=== PATIENT | male | born 1965 | race Caucasian/White ===

== ENCOUNTER → 2018-04-07 | Emergency (ER) | payer SELFPAY ==
[~2018-04-07] MED LIST: ASPIRIN 81 MG TABLET, CHEWABLE PO ONE; HYDRALAZINE HCL INJ/PF 20 MG/1 ML SDV IV ONE; METOPROLOL TARTRATE PF/INJ 5 MG/5 ML SDV IV ONE
--- NOTE | 2018-04-07 15:46 | ER Document Report ---
ED Medical Screen (RME) - General Chief Complaint: Shoulder Pain Stated Complaint: LEFT SHOULDER PAIN Time Seen by Provider: 04/07/18 15:41 Mode of Arrival: Ambulatory Information source: Patient Notes: 53-year-old male presents emergency department with complaints of pain, numbness , tingling to the left upper extremity that is been intermittent in nature over the last couple months. Patient denies any alleviating or exacerbating factors. No trauma or injury. He denies any associated chest pain but states that he is having shortness of breath. Patient denies any medical problems. Patient states that he does not see a physician. He's not sure if he has any medical problems. He is not on any medications. Patient does smoke. Patient does have a significant family history of coronary artery disease. I have greeted and performed a rapid initial assessment of this patient. A comprehensive ED assessment and evaluation of the patient, analysis of test results and completion of the medical decision making process will be conducted by additional ED providers. PHYSICAL EXAMINATION: GENERAL: Well-appearing, well-nourished and in no acute distress. HEAD: Atraumatic, normocephalic. EYES: Pupils equal round extraocular movements intact, conjunctiva are normal. ENT: Nares patent NECK: Normal range of motion LUNGS: No respiratory distress Musculoskeletal: Normal range of motion. L trapezius tenderness to palpation. NEUROLOGICAL: Normal speech, normal gait. PSYCH: Normal mood, normal affect. SKIN: Warm, Dry, normal turgor, no rashes or lesions noted. TRAVEL OUTSIDE OF THE [place] IN LAST 30 DAYS: No - Related Data Allergies/Adverse Reactions: No Known Allergies Allergy (Unverified 04/07/18 15:25) Past Medical History - Social History Chew tobacco use (# tins/day): No Frequency of alcohol use: Occasional Drug Abuse: Marijuana Renal/ Medical History: Denies: Hx Peritoneal Dialysis Past Surgical History: Reports: Hx Appendectomy - Immunizations Hx Diphtheria, Pertussis, Tetanus Vaccination: No Physical Exam - Vital signs Vitals: Temp Pulse Resp BP Pulse Ox 98.5 F 114 H 20 180/125 H 96 04/07/18 15:29 04/07/18 15:29 04/07/18 15:29 04/07/18 15:29 04/07/18 15:29 Course - Vital Signs Vital signs: Temp Pulse Resp BP Pulse Ox 98.5 F 114 H 20 180/125 H 96 04/07/18 15:29 04/07/18 15:29 04/07/18 15:29 04/07/18 15:29 04/07/18 15:29
[2018-04-07 16:33] LABS: ABSOLUTE NEUT (AUTO) 5.5 10^3/uL (1.7-8.2); BASOPHILS % (AUTO) 0.6 % (0-2); EOSINOPHILS % (AUTO) 0.5 % (0-6); HEMOGLOBIN 18.9 g/dL (13.5-17.0); MEAN CORPUSCULAR HEMOGLOBIN 33.1 pg (27.0-33.4); MEAN CORPUSCULAR HGB CONC 34.9 g/dL (32.0-36.0); MEAN CORPUSCULAR VOLUME 95 fl (80-97); MONOCYTES % (AUTO) 11.9 % (3-13); PLATELET COUNT 314 10^3/uL (150-450); RED BLOOD COUNT 5.71 10^6/uL (4.35-5.55); RED CELL DISTRIBUTION WIDTH 12.7 % (11.5-14.0); TOTAL CELLS COUNTED % (AUTO) 100 %; WHITE BLOOD COUNT 8.6 10^3/uL (4.0-10.5)
--- NOTE | 2018-04-07 16:41 | RADIOLOGY REPORT (SQ) ---
EXAM DESCRIPTION: CHEST SINGLE VIEW COMPLETED DATE/TIME: 04/07/2018 4:33 pm REASON FOR STUDY: shortness of breath COMPARISON: None. EXAM PARAMETERS: NUMBER OF VIEWS: One view. TECHNIQUE: Single frontal radiographic view of the chest acquired. RADIATION DOSE: NA LIMITATIONS: None. FINDINGS: LUNGS AND PLEURA: Lung [place] are hyperexpanded but clear. No pneumothorax. No effusions . MEDIASTINUM AND HILAR STRUCTURES: No masses. Contour normal. HEART AND VASCULAR STRUCTURES: Heart normal in size. Normal vasculature. BONES: No acute findings. HARDWARE: None in the chest. OTHER: No other significant finding. IMPRESSION: NO ACUTE RADIOGRAPHIC FINDING IN THE CHEST. TECHNICAL DOCUMENTATION: JOB ID: [id number]- All Rights Reserved Reading location - IP/workstation name: [email or web address]
[2018-04-07 16:51] LABS: ALANINE AMINOTRANSFERASE 46 U/L (21-72); ALBUMIN 4.9 g/dL (3.5-5.0); ALKALINE PHOSPHATASE 105 U/L (38-126); ANION GAP 10 (5-19); ASPARTATE AMINO TRANSFERASE 41 U/L (17-59); BILIRUBIN,DIRECT 0.4 mg/dL (0.0-0.4); BILIRUBIN,TOTAL 0.9 mg/dL (0.2-1.3); BLOOD UREA NITROGEN 13 mg/dL (7-20); CALCIUM 10.3 mg/dL (8.4-10.2); CARBON DIOXIDE 26 mmol/L (22-30); CHLORIDE 102 mmol/L (98-107); CREATINE KINASE 80 U/L (55-170); GLUCOSE 106 mg/dL (75-110); POTASSIUM 5.4 mmol/L (3.6-5.0); SODIUM 137.8 mmol/L (137-145); TOTAL PROTEIN 8.7 g/dL (6.3-8.2)
[2018-04-07 17:06] LABS: TROPONIN I < 0.012 ng/mL
--- NOTE | 2018-04-07 18:33 | EKG REPORT ---
SEVERITY:- OTHERWISE NORMAL ECG - SINUS RHYTHM VENTRICULAR PREMATURE COMPLEX MINIMAL ST ELEVATION, ANTERIOR LEADS : Confirmed by: Brad Argueta MD 07-Apr-2018 18:31:45
--- NOTE | 2018-04-07 18:40 | ER Document Report ---
ED General - General Chief Complaint: Shoulder Pain Stated Complaint: LEFT SHOULDER PAIN Time Seen by Provider: 04/07/18 15:41 Mode of Arrival: Ambulatory Notes: 53-year-old male presents emergency department with complaints of pain, numbness , tingling to the left upper extremity that is been intermittent over the last couple months. Patient denies any alleviating or exacerbating factors. No trauma or injury. He denies any associated chest pain but states that he is having shortness of breath. Patient denies any medical problems. Patient states that he does not see a physician. He's not sure if he has any medical problems. He is not on any medications. Patient does smoke. Patient does have a significant family history of coronary artery disease. TRAVEL OUTSIDE OF THE [place] IN LAST 30 DAYS: No - Related Data Allergies/Adverse Reactions: No Known Allergies Allergy (Unverified 04/07/18 15:25) Past Medical History - General Information source: Patient - Social History Smoking Status: Current Every Day Smoker Chew tobacco use (# tins/day): No Frequency of alcohol use: Occasional Drug Abuse: Marijuana Family History: Reviewed & Not Pertinent Patient has suicidal ideation: No Patient has homicidal ideation: No Renal/ Medical History: Denies: Hx Peritoneal Dialysis Past Surgical History: Reports: Hx Appendectomy - Immunizations Hx Diphtheria, Pertussis, Tetanus Vaccination: No Review of Systems - Review of Systems Cardiovascular: denies: Chest pain Respiratory: Short of breath Musculoskeletal: Joint pain -: Yes All other systems reviewed and negative Physical Exam - Vital signs Vitals: Temp Pulse Resp BP Pulse Ox 98.5 F 114 H 20 180/125 H 96 04/07/18 15:29 04/07/18 15:29 04/07/18 15:29 04/07/18 15:29 04/07/18 15:29 - Notes Notes: GENERAL_APPEARANCE: well_nourished, alert, cooperative, no_acute_distress, no_ obvious_discomfort. VITALS: reviewed, see vital signs table. HEAD: no_swelling\tenderness on the head. EYES: PERRL, EOMI, conjunctiva_clear. NOSE: no_nasal_discharge. MOUTH: (-)decreased moisture. THROAT: no_throat_inflammation, no_airway_obstruction. no_lymphadenopathy NECK: supple, no_neck_tenderness, (-)thyromegaly. BACK: no_back_tenderness. CHEST_WALL: no_chest_tenderness. LUNGS: no_wheezing, no_rales, no_rhonchi, (-)accessory muscle use, good air exchange bilateral. HEART: normal_rate, normal_rhythm, normal_S1, normal_S2, (-)S3, (-)S4, no_ murmur, no_rub. ABDOMEN: normal_BS, soft, no_abd_tenderness, (-)guarding, (-)rebound, no_ organomegaly, no_abd_masses. EXTREMITIES: Patient has some tenderness in the posterior glenohumeral area. He does have pain upon lifting the arm above the head. There is some mild crepitus felt with it but that is also present on the contralateral arm. He states he is only had popping and grinding in his shoulders. There is strong radial and ulnar pulses noted on the left. No swelling is noted. SKIN: warm, dry, good_color, no_rash. MENTAL_STATUS: speech_clear, oriented_X_3, normal_affect, responds_ appropriately to questions. NEURO: Neg Motor or Sensory Deficits on exam, CN 2-12 intact, DTR 2+ symmetric x 4, No cerbellar signs Course - Re-evaluation Re-evalutation: 04/07/18 18:38 Patient presents with some left shoulder pain. This seems to be very musculoskeletal and reproducible. He has some sort of internal derangement of the shoulder the patient did mention a shortness of breath history. However at rest he has no shortness of breath he had some mild very scant wheezing noted he is a heavy smoker. Patient's blood pressure is elevated. I think I will start him on some HCTZ for this. His EKG does show some LVH. He is not complaining of any chest pain. This would go along with untreated hypertension the patient does not go to doctors normally. Recommend referral to orthopedics for his shoulders. Strongly recommended primary care follow-up for the blood pressure. My suspicion is low that this is an anginal equivalent. There is a family history of heart disease. However the reproducibility of discomfort on the arm is present. I spoke with him at length about this and the limitations of our testing. They are comfortable with this and okay going home if he develops any chest pain or worsening discomfort that cannot be reproduced or anything that concerns him he should return to the ER. - Vital Signs Vital signs: Temp Pulse Resp BP Pulse Ox 98.5 F 114 H 18 180/125 H 98 04/07/18 15:29 04/07/18 15:29 04/07/18 16:36 04/07/18 15:29 04/07/18 16:36 - Laboratory Result Diagrams: 04/07/18 16:10 04/07/18 16:10 Laboratory results interpreted by me: 04/07/18 04/07/18 16:10 16:10 RBC 5.71 H Hgb 18.9 H Hct 54.0 H Potassium 5.4 H Calcium 10.3 H Total Protein 8.7 H - Diagnostic Test Radiology results interpreted by me: 04/07/18 18:38 Chest X-Ray 04/07/18 15:45 IMPRESSION: NO ACUTE RADIOGRAPHIC FINDING IN THE CHEST. - EKG Interpretation by Me EKG shows normal: Sinus rhythm Rate: Normal Rhythm: NSR Additional EKG results interpreted by me: 04/07/18 18:38 There is LVH at a rate of 94 --the computer mention anterior changes this is due to LVH. Discharge - Discharge Clinical Impression: Internal derangement of left shoulder Hypertension Qualifiers: Hypertension type: unspecified Qualified Code(s): I10 - Essential (primary) hypertension Condition: Good Disposition: HOME, SELF-CARE Instructions: High Blood Pressure ([facility]), Shoulder Injury ([facility]) Additional Instructions: Your shoulder pain is likely due to internal derangement of the cartilage and ligaments in her shoulder. I will refer you to Dr. Bush orthopedics. He will likely need to do an MRI or arthroscope to look into this further. While you are here your blood pressure is running abnormally high. We will start you on a blood pressure medicine. Low dose. Please establish family practice primary care to return. Your blood pressure we need to be followed up closely. Not all tests are 100% if you began feeling worse or having chest pain breaking out to sweats or unexplained nausea and return to the ER immediately. Prescriptions: Hydrochlorothiazide 25 mg PO DAILY #30 tablet Naproxen [Naprosyn] 500 mg PO Q12H PRN #30 tablet PRN Reason: pain Forms: Elevated Blood Pressure
--- NOTE | 2018-04-07 20:21 | ER Document Report ---
ED General - General Chief Complaint: Shoulder Pain Stated Complaint: LEFT SHOULDER PAIN Time Seen by Provider: 04/07/18 15:41 Mode of Arrival: Ambulatory Information source: Patient Notes: Patient presented with left upper extremity pain. Patient is a smoker and has never had a stress test. Denies history of high blood pressure. Patient was initially seen by Dr. Vega and was discharged home. However did not was called me because his blood pressure is too high. I went and accessed the patient and patient said is not feeling fine and his blood pressure is elevated. TRAVEL OUTSIDE OF THE [place] IN LAST 30 DAYS: No - HPI Onset: Just prior to arrival Onset/Duration: Sudden Quality of pain: Achy, Dull Severity: Moderate Pain Level: 3 Associated symptoms: None Exacerbated by: Denies Relieved by: Denies Similar symptoms previously: No Recently seen / treated by doctor: No - Related Data Allergies/Adverse Reactions: No Known Allergies Allergy (Unverified 04/07/18 15:25) Past Medical History - General Information source: Patient - Social History Smoking Status: Current Every Day Smoker Chew tobacco use (# tins/day): No Frequency of alcohol use: Occasional Drug Abuse: Marijuana Family History: Reviewed & Not Pertinent Patient has suicidal ideation: No Patient has homicidal ideation: No Renal/ Medical History: Denies: Hx Peritoneal Dialysis Past Surgical History: Reports: Hx Appendectomy - Immunizations Hx Diphtheria, Pertussis, Tetanus Vaccination: No Review of Systems - Review of Systems Constitutional: No symptoms reported EENT: No symptoms reported Cardiovascular: No symptoms reported Respiratory: No symptoms reported Gastrointestinal: No symptoms reported Genitourinary: No symptoms reported Male Genitourinary: No symptoms reported Musculoskeletal: Other - Left upper extremity pain Skin: No symptoms reported Hematologic/Lymphatic: No symptoms reported Neurological/Psychological: No symptoms reported Physical Exam - Vital signs Vitals: Temp Pulse Resp BP Pulse Ox 98.5 F 114 H 20 180/125 H 96 04/07/18 15:29 04/07/18 15:29 04/07/18 15:29 04/07/18 15:29 04/07/18 15:29 Interpretation: Normal - General General appearance: Appears well, Alert - HEENT Head: Normocephalic, Atraumatic Eyes: Normal Pupils: PERRL - Respiratory Respiratory status: No respiratory distress Chest status: Nontender Breath sounds: Normal Chest palpation: Normal - Cardiovascular Rhythm: Regular Heart sounds: Normal auscultation Murmur: No - Abdominal Inspection: Normal Distension: No distension Bowel sounds: Normal Tenderness: Nontender Organomegaly: No organomegaly - Back Back: Normal, Nontender - Extremities General upper extremity: Normal inspection, Nontender, Normal color, Normal ROM , Normal temperature General lower extremity: Normal inspection, Nontender, Normal color, Normal ROM , Normal temperature, Normal weight bearing. No: Alisson's sign - Neurological Neuro grossly intact: Yes Cognition: Normal Orientation: AAOx4 [place] Coma Scale Eye Opening: Spontaneous Edy Coma Scale Verbal: Oriented [place] Coma Scale Motor: Obeys Commands [place] Coma Scale Total: 15 Speech: Normal Motor strength normal: LUE, RUE, LLE, RLE Sensory: Normal - Psychological Associated symptoms: Normal affect, Normal mood - Skin Skin Temperature: Warm Skin Moisture: Dry Skin Color: Normal Course - Vital Signs Vital signs: Temp Pulse Resp BP Pulse Ox 98.5 F 79 14 182/120 H 99 04/07/18 15:29 04/07/18 19:35 04/07/18 20:31 04/07/18 20:31 04/07/18 20:31 - Laboratory Result Diagrams: 04/07/18 16:10 04/07/18 16:10 Laboratory results interpreted by me: 04/07/18 04/07/18 16:10 16:10 RBC 5.71 H Hgb 18.9 H Hct 54.0 H Potassium 5.4 H Calcium 10.3 H Total Protein 8.7 H - Diagnostic Test Radiology reviewed: Image reviewed, Reports reviewed - EKG Interpretation by Ct EKG shows normal: Sinus rhythm Rate: Normal - 94 Rhythm: NSR When compared to previous EKG there are: Previous EKG unavailable Additional EKG results interpreted by me: 04/07/18 20:20 ST elevation in the anterior leads without reciprocal changes in the lateral leads. - Transfer of Care Notes: 04/07/18 20:21 Hypertensive emergency. Discharge - Discharge Clinical Impression: Internal derangement of left shoulder, Hypertensive emergency Hypertension Qualifiers: Hypertension type: unspecified Qualified Code(s): I10 - Essential (primary) hypertension Condition: Good Disposition: ADMITTED OBSERVATION Admitting Provider: Hospitalist Unit Admitted: Telemetry
[2018-04-07 21:27] VITALS: BP 177/122
== END | disposition admitted as inpatient to this hospital (09) ==
LOC: ER 15:20 → EH 20:44 → UNDOADMIN 20:44 → UNDODISIN 21:23
DX: M24.812 Other specific joint derangements of left shoulder, not elsewhere classified (principal); I10 Essential (primary) hypertension; M25.512 Pain in left shoulder; R06.02 Shortness of breath; R20.2 Paresthesia of skin; F17.200 Nicotine dependence, unspecified, uncomplicated
CPT/HCPCS: 93005; 99285; 96374; 36415; 82553; 82550; 85025; 80053; 84484; 71045; 93010; J3490

== ENCOUNTER 2019-04-14 10:11 | Emergency (ER) | payer OTHER ==
[2019-04-14] MEDS ORDERED: OXYCODONE-ACETAMINOPHEN 5-325 MG TABLET PO ONE (10:53)
[2019-04-14] MEDS ORDERED: PROMETHAZINE HCL 25 MG TABLET PO ONE (10:54)
--- NOTE | 2019-04-14 11:45 | RADIOLOGY REPORT (SQ) ---
EXAM DESCRIPTION: HAND LEFT 3 VIEWS COMPLETED DATE/TIME: 04/14/2019 11:31 am REASON FOR STUDY: Fell and injured lef hand. COMPARISON: None. EXAM PARAMETERS: NUMBER OF VIEWS: Three views. TECHNIQUE: AP, lateral and oblique radiographic images acquired of the left hand. LIMITATIONS: None. FINDINGS: MINERALIZATION: Normal. BONES: Cannot exclude a fracture of the trapezium versus trapezium secondarium, an accessory ossicle appear JOINTS: No effusions. SOFT TISSUES: No soft tissue swelling. No foreign body. OTHER: No other significant finding. IMPRESSION: Fracture of the trapezium versus an accessory ossicle. Correlate clinically. TECHNICAL DOCUMENTATION: JOB ID: [id number]- All Rights Reserved Reading location - IP/workstation name: [email or web address]
[2019-04-14] MEDS ORDERED: CLONIDINE HCL 0.1 MG TABLET PO ONE (12:00)
--- NOTE | 2019-04-14 12:11 | ER Document Report ---
ED Fall - General Chief Complaint: Fall Injury Stated Complaint: LEG INJURY Time Seen by Provider: 04/14/19 10:51 Primary Care Provider: AMANDA JERONIMO MD [ACTIVE PROVISIONAL STAFF] - Follow up in 3-5 days Notes: Patient fell down from a 10 foot ladder earlier this morning. He complains primarily of an injury to the left hand and wrist region, although he has abrasions on both shins. Denies any head injury or loss of consciousness. Denies any neurologic deficits. Denies any neck pain. TRAVEL OUTSIDE OF THE [place] IN LAST 30 DAYS: No - Related data Allergies/Adverse Reactions: No Known Allergies Allergy (Unverified 04/07/18 15:25) Past Medical History - Social History Smoking Status: Current Every Day Smoker Frequency of alcohol use: Social Drug Abuse: None, Marijuana Family History: Reviewed & Not Pertinent Patient has suicidal ideation: No Patient has homicidal ideation: No - Past Medical History Cardiac Medical History: Reports: Hx Hypertension - Supposed to be on medications, but does not take any. Past Surgical History: Reports: Hx Appendectomy - Immunizations Hx Diphtheria, Pertussis, Tetanus Vaccination: No Review of Systems - Review of Systems Notes: CONSTITUTIONAL : Denies fever. CARDIOVASCULAR: Denies chest pain. RESPIRATORY: Denies cough, chest congestion, or shortness of breath. GASTROINTESTINAL: Denies abdominal pain or nausea, vomiting, or diarrhea. GENITOURINARY: Denies difficulty or painful urinating, urinary frequency, blood in urine. Extremities: Abrasions to both lower leg shins. Swelling and pain in the left hand, dorsal webspace. Physical Exam - Vital signs Vitals: Temp Resp BP Pulse Ox 98.4 F 20 201/136 H 96 04/14/19 10:19 04/14/19 10:19 04/14/19 10:19 04/14/19 10:19 Interpretation: Hypertensive Notes: PHYSICAL EXAMINATION: Blood pressure significantly elevated with a diastolic of 136 initially. GENERAL: Well-appearing, no acute distress. HEAD: Atraumatic, normocephalic. NECK: Normal range of motion, supple. Nontender with full range of motion. LUNGS: Breath sounds clear and equal bilaterally. No rib tenderness. HEART: Regular rate and rhythm without murmurs heard. ABDOMEN: Soft, nontender. No guarding or rebound or masses felt. Extremities: Soft tissue swelling of the dorsal webspace of the left hand which is very tender to touch or move. Superficial abrasions extending on the volar aspect of the distal left forearm. Good pulses in the fingertips. Linear superficial abrasions down the anterior ridge of the tibia bilaterally. None of these are deep enough to require sutures. Neuro: Normal neurologic exam, moves all 4 extremities, awake, alert, oriented x3. Course - Re-evaluation Re-evalutation: 04/14/19 20:[address] Jeronimo, on-call for orthopedics, and he will make arrangements to see the patient. Blood pressure came down to an acceptable level in the 140-150 systolic over 106 diastolic. - Vital Signs Vital signs: Temp Pulse Resp BP Pulse Ox 98.1 F 19 143/108 H 97 04/14/19 15:12 04/14/19 15:12 04/14/19 15:12 04/14/19 15:12 Procedures - Immobilization Left Hand Pre-Proc Neuro Vasc Exam: Normal Immobilizer type: Volar splint Performed by: PCT Post-Proc Neuro Vasc Exam: Normal, Unchanged from pre-exam Discharge - Discharge Clinical Impression: Fracture of trapezium of left wrist, Hypertension Condition: Stable Disposition: HOME, SELF-CARE Additional Instructions: Fracture You have a fracture. The typical broken bone requires only protection and sufficient time for healing. "Setting" is necessary only if the bones are crooked or out of position. The physician will re-assess you periodically to make certain that the bone heals without complications. It's important that you follow the instructions given you. The initial treatment is immobilization, elevation of the injury, and cold packs. Not all fractures require a cast. Depending on the location and type of fracture, immobilization may consist of a splint, cast, sling, bulky dressing, or simply rest. The length of time required for healing depends on the location and type of fracture, and on the age of the patient. The treatment plan the physician has outlined for you is customized to your fracture and health condition. Call the doctor or return at once if pain becomes severe, or if severe swelling or numbness develop. You have a fracture of your trapezium and 1 of the metacarpals of your left hand. SPLINT PRECAUTIONS: A splint has been placed. This will protect the area while healing begins. Your problem does NOT normally require a cast. It MUST, however, be held still! Keep the splint on ALL THE TIME until instructed to remove it by the doctor. As you begin to use the area, be careful. You shouldn't do anything which causes discomfort -- you may disturb the injury even with the splint in place. After the initial period of rest and elevation, if splint does not prevent pain when you move, come back. You may require placement of a different splint, or a cast. If there is unexpected severe pain, or numbness, discoloration, or swelling beyond the splint, you should return at once. If you feel that the splint has broken or become loose, come back. ICE & ELEVATION: Apply ice packs frequently against the painful area. Many different schedules are recommended, such as "20 minutes on, 20 minutes off" or "one hour ice, two hours rest." If you need to work, you may need to go longer between ice treatments. You should plan to have the area ice packed AT LEAST one-fourth of the time. The ice should be applied over the wrap, tape, or splint, or over a layer of cloth -- not directly against the skin. Some ice bags have a built-in cloth and can be put directly on the skin. Your injured part should be elevated as much as possible over the next 48 hours. Try to keep the injury above the level of the heart. Avoid use of the injured area. Elevation and rest will decrease the swelling. Oral Narcotic Medication You have been given a prescription for pain control. This medication is a narcotic. It's best taken with food, as nausea can result if taken on an empty stomach. Don't operate machinery or drive within six hours of taking this medication. Do not combine this medicine with alcohol, or with any medication which can cause sedation (such as cold tablets or sleeping pills) unless you get permission from the physician. Narcotics tend to cause constipation. If possible, drink plenty of fluids and eat a diet high in fiber and fruits. Antinausea Medication You have been given a medication to suppress nausea and vomiting. This type of medication can be given as a shot, pill, or suppository. It will usually last for many hours. Pills and shots usually last six to eight hours, suppositories last about 12 hours. For the typical illness, only one or two doses of the medication may be necessary. Mild lightheadedness may occur. This type of medicine can cause drowsiness. Do not drive or operate dangerous machinery while under its influence. Do not mix with alcohol. See your doctor at once if you have muscle spasms or tightness, or uncontrollable motions (particularly of the neck, mouth, or jaw). Persistent vomiting or severe lightheadedness should also be evaluated by the physician. FOLLOW-UP CARE: If you have been referred to a physician for follow-up care, call the physicians office for an appointment as you were instructed or within the next two days. If you experience worsening or a significant change in your symptoms, notify the physician immediately or return to the Emergency Department at any time for re-evaluation. I have spoken with Dr. Jeronimo and he will follow-up with you about the fractures in your hand. His contact information is provided at the end of these discharge instructions. HIGH BLOOD PRESSURE REQUIRING TREATMENT: Your blood pressure is high. This is called "hypertension." Today's reading was (normal is less than 140/90). Your history and exam suggest that this is not a temporary problem. You need treatment of your blood pressure. If left untreated, high blood pressure greatly increases your risk of heart attack and stroke. Please don't ignore this problem. If you have blood pressure medicine but aren't using it regularly, start taking it again. Some simple things you can do to help are: Get some aerobic exercise for at least 20 minutes on a daily basis. (See your doctor before beginning any new exercise program.) Eat a low-fat diet. Lose excess weight. Avoid salty foods and avoid adding salt to any of the foods you eat. Avoid diet pills, decongestants, "energizing" herbs, and other medicines that elevate blood pressure. There are many different medicines that treat blood pressure. If your medication causes unpleasant side effects, call your doctor. There are others you can try. Treating hypertension is a life-long investment in your health. CLONIDINE (CATAPRES): Clonidine is blood-pressure medicine. It works in your brain, making the nervous system relax the blood vessels. This medicine can also be used for symptoms of narcotic withdrawal. Clonidine frequently causes dry mouth, drowsiness, and dizziness. These symptoms go away as you continue to use it. Rest for the first couple of days. Don't drive or use machinery until you're back to normal. Never stop clonidine suddenly! There can be a "rebound" severe increase in blood pressure, headache, and agitation. Be sure you always have enough of the medicine. Call the doctor if you have any new symptoms such as skin rash, weakness, severe lightheadedness, chest pain, headache, or depression. You have been prescribed clonidine to take for your blood pressure. It is very important that you take medications for your blood pressure for the rest of your life. You need to see another provider in a week or 10 days to recheck your blood pressure and to see if you need to adjust the medications that you are going to get from me today. FOLLOW-UP CARE: If you have been referred to a physician for follow-up care, call the physicians office for an appointment as you were instructed or within the next two days. If you experience worsening or a significant change in your symptoms, notify the physician immediately or return to the Emergency Department at any time for re-evaluation. Prescriptions: Clonidine HCl [Catapres 0.1 mg Tablet] 0.1 mg PO BID #60 tablet Oxycodone HCl/Acetaminophen [Percocet 5-325 mg Tablet] 1 - 2 tab PO Q4H PRN #20 tablet PRN Reason: Promethazine HCl [Phenergan 25 mg Tablet] 1 - 2 tab PO Q6H PRN #15 tablet PRN Reason: Forms: Return to Work Referrals: MAANDA JERONIMO MD [ACTIVE PROVISIONAL STAFF] - Follow up in 3-5 days
--- NOTE | 2019-04-14 13:00 | RADIOLOGY REPORT (SQ) ---
EXAM DESCRIPTION: CT LT UPPER EXTREMITY WITHOUT COMPLETED DATE/TIME: 04/14/2019 12:31 pm REASON FOR STUDY: X-ray wrist read as questionable fracture trapeziu COMPARISON: None. TECHNIQUE: Axial imaging performed through the left wrist with reformatted coronal and sagittal imag ing windowed for bone and soft tissues. Images saved to PACS. 3D IMAGING: Were 3D images as MIP, SSD, or volume rendering performed at the work station? No. All CT scanners at this facility use dose modulation, iterative reconstruction, and/or weight based d osing when appropriate to reduce radiation dose to as low as reasonably achievable (ALARA). [facility]: Dose Right [facility]: CareDose [facility]: Dose Right [facility]: Teradose 4D [facility]: [employer] LIMITATIONS: None. RADIATION DOSE: mGy. FINDINGS: SOFT TISSUES: No obvious swelling or foreign body. BONES: The study demonstrates a fracture through the dorsal aspect of the trapezium. There is a frac ture of the proximal 2nd metacarpal. This is best demonstrated on sagittal reconstructions. MINERALIZATION: Normal. OTHER: No other significant finding. IMPRESSION: Fracture of the trapezium. Fracture of the proximal 2nd metacarpal as well. TECHNICAL DOCUMENTATION: JOB ID: [id number] Quality ID # [id number]: Final reports with documentation of one or more dose reduction techniques (e.g., Au tomated exposure control, adjustment of the mA and/or kV according to patient size, use of iterative reconstruction technique) 2010 [employer]- All Rights Reserved Reading location - IP/workstation name: [email or web address]
[2019-04-14 15:16] VITALS: BP 143/108
== END 2019-04-14 15:25 | disposition home or self-care (01) ==
LOC: ER 10:11
DX: S62.172A Displaced fracture of trapezium [larger multangular], left wrist, initial encounter for closed fracture (principal); S80.812A Abrasion, left lower leg, initial encounter; S80.811A Abrasion, right lower leg, initial encounter; S50.812A Abrasion of left forearm, initial encounter; M79.642 Pain in left hand; M79.89 Other specified soft tissue disorders; W11.XXXA Fall on and from ladder, initial encounter; F17.200 Nicotine dependence, unspecified, uncomplicated; I10 Essential (primary) hypertension
CPT/HCPCS: 99284